=== PATIENT | female | born 1990 | race Caucasian/White ===

== ENCOUNTER 2021-09-07 04:32 | Inpatient (IN) | payer MEDICAID ==
[~2021-09-07] VITALS: Ht 157.5 cm; Wt 59.0 kg
[2021-09-07 05:34] LABS: BASOPHILS % 0.7 % (0.0-2.0); HEMATOCRIT. 33.3 % (36.0-48.0); HEMOGLOBIN. 11.2 g/dL (12.0-16.0); LYMPHOCYTES % 8.3 % (20.0-50.0); MEAN CORPUSCULAR HEMOGLOBIN 28.7 pg (28.0-32.0); MEAN CORPUSCULAR VOLUME 85.6 fL (81.0-99.0); MEAN PLATELET VOLUME 7.8 fl (7.4-10.4); MONOCYTES % 4.4 % (2.0-8.0); NEUTROPHILS % 86.6 % (40.0-76.0); PLATELET 145 x1000/uL (130-400); RED BLOOD CELL COUNT 3.89 mill/uL (4.2-5.4); RED CELL DISTRIBUTION WIDTH 13.4 % (11.6-14.6)
[2021-09-07 05:40] LABS: CHLORIDE 86 mEq/L (98-107)
[2021-09-07 05:51] LABS: HCG SCREEN NEGATIVE
[2021-09-07] MEDS ORDERED: MAGNESIUM 2 G PREMIX 50 ML IV ONE (06:00)
[2021-09-07] MEDS ORDERED: POTASSIUM CHLORIDE 20MEQ TABLET SR PO ONE (06:00)
[2021-09-07] MEDS ORDERED: LORAZEPAM 2MG/ML CPJ IM ONE (08:15)
[2021-09-07 08:44] LABS: ETHANOL BLOOD < 10 mg/dL
[2021-09-07 12:00] VITALS: BP 131/96
[2021-09-07 12:02] LABS: CANNABINOID URINE SCREEN NEGATIVE (NEGATIVE); METHADONE URINE SCREEN NEGATIVE (NEGATIVE); OPIATES URINE SCREEN NEGATIVE (NEGATIVE); PHENCYCLIDINE URINE SCREEN NEGATIVE (NEGATIVE)
[2021-09-07 12:03] LABS: *AMPHETAMINES SCREEN URINE NEGATIVE (NEGATIVE); *BARBITURATES SCREEN URINE NEGATIVE (NEGATIVE); *BENZODIAZEPINES SCREEN URINE NEGATIVE (NEGATIVE); *COCAINE SCREEN URINE NEGATIVE (NEGATIVE)
[2021-09-07] MEDS ORDERED: ACETAMINOPHEN 325MG TABLET PO PRN (13:30)
[2021-09-07] MEDS ORDERED: ONDANSETRON HCL 4MG/2ML INJ IV PRN (13:30)
[2021-09-07] MEDS ORDERED: LORAZEPAM 0.5MG TABLET PO PRN (13:30)
[2021-09-07] MEDS: CHLORDIAZEPOXIDE 25MG CAPSULE PO SCH ×2 (14:07→21:30)
[2021-09-07] MEDS: KETOROLAC 15MG/ML VIAL IV PRN (14:08)
[2021-09-07 14:19] VITALS: BP 136/72
[2021-09-07] MEDS ORDERED: SODIUM CHLORIDE 0.45% 1,000 ML IV SCH (15:00)
[2021-09-07 16:00] VITALS: BP 136/93
[2021-09-07] MEDS ORDERED: POTASSIUM CHLORIDE 20MEQ/PACKET PO NR (16:00)
[2021-09-07 20:00] VITALS: BP 131/91
[2021-09-08] VITALS: BP 124/83
[2021-09-08 04:00] VITALS: BP 118/75
[2021-09-08] MEDS: KETOROLAC 15MG/ML VIAL IV PRN (04:07)
[2021-09-08] MEDS: CHLORDIAZEPOXIDE 25MG CAPSULE PO SCH (05:05)
[2021-09-08 08:00] VITALS: BP 128/78
[2021-09-08] MEDS ORDERED: THIAMINE HCL 100MG TABLET PO SCH (09:00)
[2021-09-08] MEDS ORDERED: MULTIVITAMINS,THER W-MINERALS TABLET PO SCH (09:00)
[2021-09-08 10:16] LABS: HEMATOCRIT 33.7 % (36.0-48.0); HEMOGLOBIN 11.3 g/dL (12.0-16.0); MEAN CORPUSCULAR HEMOGLOBIN 29.6 pg (28.0-32.0); MEAN CORPUSCULAR VOLUME 88.2 fL (81.0-99.0); PLATELET 149 x1000/uL (130-400); RED BLOOD CELL COUNT 3.82 mill/uL (4.2-5.4); RED CELL DISTRIBUTION WIDTH 13.3 % (11.6-14.6)
[2021-09-08 10:40] LABS: CHLORIDE 100 mEq/L (98-107)
[2021-09-08 10:52] VITALS: BP 158/98
[2021-09-08 12:00] VITALS: BP 119/66
[2021-09-08] MEDS ORDERED: POTASSIUM CHLORIDE 20MEQ/PACKET PO NR (12:00)
== END 2021-09-08 12:40 | disposition home or self-care (01) | DRG 425 ==
LOC: ER 04:32 → EDBD 04:32 → 8WST 10:28 → ENRESERV 11:12 → 8WST 13:47
PROVIDERS: ADMIT Hospitalist; ATTEND Hospitalist
DX: E87.6 Hypokalemia (principal); F10.139 Alcohol abuse with withdrawal, unspecified; F14.90 Cocaine use, unspecified, uncomplicated; F15.90 Other stimulant use, unspecified, uncomplicated; F17.200 Nicotine dependence, unspecified, uncomplicated; Y90.9 Presence of alcohol in blood, level not specified; Z82.49 Family history of ischemic heart disease and other diseases of the circulatory system
CPT/HCPCS: 36415; 80048; 80053; 80305; 80307; 80320; 80329; 82962; 83735; 84703; 85025; 85027; 93005; 99285; J1885; J2060; J3475; G0480